=== PATIENT | female | born 1980 | race Caucasian/White ===

== ENCOUNTER → 2016-03-15 | Outpatient (CLI) | payer OTHER ==
[~2016-03-15] MED LIST: LORT5TAB PO; Z.0.NO CURRENT MEDS
[2016-03-15 17:09] LABS: BETA HCG QUANT 5450 MIU/ML (0-5)
== END ==
LOC: CLAB 15:53
PROVIDERS: ATTEND Obstetrics & Gynecology
DX: O03.9 Complete or unspecified spontaneous abortion without complication (principal)
CPT/HCPCS: 36415; 84702; 86850; 86900; 86901; J2790; 90384

== ENCOUNTER → 2016-09-14 | Outpatient (CLI) | payer OTHER | LOC: HPND 08:49 | PROVIDERS: ATTEND Obstetrics & Gynecology | DX: O28.0 Abnormal hematological finding on antenatal screening of mother (principal) | CPT/HCPCS: 76811; 76817 ==

== ENCOUNTER → 2016-09-21 | Outpatient (CLI) | payer OTHER | LOC: CLAB 11:01 | PROVIDERS: ATTEND Obstetrics & Gynecology | DX: O09.522 Supervision of elderly multigravida, second trimester (principal); O35.1XX0 Maternal care for (suspected) chromosomal abnormality in fetus, not applicable or unspecified; O26.872 Cervical shortening, second trimester; O28.0 Abnormal hematological finding on antenatal screening of mother; O36.0120 Maternal care for anti-D [Rh] antibodies, second trimester, not applicable or unspecified | CPT/HCPCS: 36415; 59000; 76815; 76946; 86850; 86900; 86901; 96372; J2790; 90384 ==